=== PATIENT | male | born 1960 | race Caucasian/White ===

== ENCOUNTER 2016-05-26 05:26 | Day surgery (SDC) | payer OTHER ==
[~2016-05-26] VITALS: Ht 177.8 cm; Wt 85.0 kg
[~2016-05-26 05:26] MED LIST: ATOR10TA PO; LISI20TA PO; NIAC250T7 PO; OXYC-229 PO
[2016-05-26] MEDS ORDERED: LACTATED RINGERS 1,000 ML IV SCH (06:09)
[2016-05-26] MEDS ORDERED: BUPIVACAINE/PF 0.5% ONE (06:20)
[2016-05-26] MEDS ORDERED: MIDAZOLAM 1 MG/ML, 2ML ONE (06:24)
[2016-05-26] MEDS ORDERED: FENTANYL PF 250 MCG/5ML ONE (06:24)
[2016-05-26] MEDS ORDERED: LIDOCAINE 1%, 2ML SQ PRN (06:30)
[2016-05-26] MEDS ORDERED: LIDOCAINE 1%-EPI 1:100K, 30ML ONE (06:31)
[2016-05-26] MEDS ORDERED: BUPIVACAINE/PF-EPI 0.5% 1:200K ONE ×2 (06:31→10:53)
[2016-05-26 06:41] VITALS: BP 123/87
[2016-05-26] MEDS ORDERED: ROCURONIUM 10 MG/ML ONE (06:48)
[2016-05-26] MEDS ORDERED: DEXAMETHASONE 4 MG/ML, 1ML ONE (06:48)
[2016-05-26] MEDS ORDERED: PROPOFOL 10 MG/ML, 20ML ONE (06:48)
[2016-05-26] MEDS ORDERED: CEFAZOLIN 1,000 MG ONE (06:48)
[2016-05-26] MEDS ORDERED: LABETALOL 5MG/ML ONE (06:48)
[2016-05-26] MEDS ORDERED: METOCLOPRAMIDE 5 MG/ML, 2ML ONE (06:48)
[2016-05-26] MEDS ORDERED: OXYcodone/APAP 10/325MG TABLET PO SCH (07:00)
[2016-05-26] MEDS ORDERED: CLINDAMYCIN 150 MG/ML, 6ML ONE (07:08)
[2016-05-26] MEDS ORDERED: HYDROmorphone 1 MG/ML, 1ML IV PRN (07:30)
[2016-05-26] MEDS ORDERED: FENTANYL PF 100 MCG/2ML IV PRN (07:30)
[2016-05-26] MEDS ORDERED: MEPERIDINE/PF 25MG/0.5ML IVPush PRN (07:30)
[2016-05-26] MEDS ORDERED: ONDANSETRON 2MG/ML, 2ML IVPush PRN (07:30)
[2016-05-26] MEDS ORDERED: EPHEDRINE 50 MG/ML, 1ML IVPush PRN (07:30)
[2016-05-26] MEDS ORDERED: PROMETHAZINE 25 MG/ML, 1ML IV PRN (07:30)
[2016-05-26] MEDS ORDERED: ALBUTEROL SULFATE 2.5 MG/3 ML NPPB PRN (07:30)
[2016-05-26] MEDS ORDERED: LABETALOL 5MG/ML, 20ML IV PRN (07:30)
[2016-05-26] MEDS ORDERED: OXYcodone 5 MG/5 ML ORAL.SOL UDC PO PRN (07:30)
[2016-05-26] MEDS ORDERED: METOPROLOL 1 MG/ML, 5ML IV PRN (07:30)
[2016-05-26] MEDS ORDERED: ACETAMINOPHEN 325 MG TABLET PO PRN (07:30)
[2016-05-26] MEDS ORDERED: hydrALAzine 20 MG/ML, 1ML IV PRN (07:30)
[2016-05-26] MEDS ORDERED: NIACIN 250 MG CAPSULE.ER PO SCH (09:00)
[2016-05-26] MEDS ORDERED: LISINOPRIL 20 MG TABLET PO SCH (09:00)
[2016-05-26] MEDS ORDERED: ATORVASTATIN 10 MG TABLET PO SCH (21:00)
== END 2016-05-26 12:35 | disposition home or self-care (01) ==
LOC: OR 05:26 → OUT 12:35
PROVIDERS: ATTEND Orthopaedic Surgery
DX: S46.011A Strain of muscle(s) and tendon(s) of the rotator cuff of right shoulder, initial encounter (principal); S46.211A Strain of muscle, fascia and tendon of other parts of biceps, right arm, initial encounter; X58.XXXA Exposure to other specified factors, initial encounter; M65.811 Other synovitis and tenosynovitis, right shoulder; M25.811 Other specified joint disorders, right shoulder; M19.011 Primary osteoarthritis, right shoulder; I10 Essential (primary) hypertension; Y93.9 Activity, unspecified; Y92.9 Unspecified place or not applicable; Y99.9 Unspecified external cause status
CPT/HCPCS: 29821; 29824; 29826; 29827; 29828; C1713; J0690; J1100; J2250; J2704; J2765; J3010; J3490; J7120

== ENCOUNTER → 2017-05-28 | Outpatient (CLI) | payer OTHER ==
[~2017-05-28] MED LIST changes: -OXYC-229 PO; +OXYC-307 PO
== END | disposition home or self-care (01) ==
LOC: CFH 09:19
PROVIDERS: ATTEND Orthopaedic Surgery
DX: M50.23 Other cervical disc displacement, cervicothoracic region (principal)
CPT/HCPCS: 72141